=== PATIENT | male | born 1950 | race Caucasian/White ===

== ENCOUNTER 2018-03-14 13:46 | Outpatient (REF) | payer MEDICARE, SELFPAY ==
[2018-03-14 20:46] LABS: Abs Immature Grans 0.01 k/cumm (0.0-0.09); Absolute Basophil Count 0.04 k/cumm (0.0-0.2); Absolute Eosinophil Count 0.09 k/cumm (0.0-0.7); Absolute Lymphocyte Count 1.48 k/cumm (1.2-3.4); Absolute Monocyte Count 0.82 k/cumm (0.11-0.7); Absolute Neutrophil Count 5.24 k/cumm (1.2-6.7); Basophils % 0.5; Eosinophils % 1.2; HCT 45.9 % (40.0-50.0); HGB 15.1 g/dL (13.5-17.5); Immature Grans % 0.1; Lymphocytes % 19.3; Mean Corp. HGB Concentration 32.9 g/dL (32.0-36.0); Mean Corpuscular Hemoglobin 32.7 pg (27.0-33.0); Mean Corpuscular Volume 99.4 fL (80-95); Mean Platelet Volume 9.2 fL (8.0-11.0); Monocytes % 10.7; Neutrophils % 68.2; Platelet Count 255 x1000/uL (130-400); RBC 4.62 m/cumm (4.50-6.00); RBC Distribution Width 14.7 % (11.8-14.1); White Blood Cell Count 7.68 k/cumm (4.4-10.8)
[2018-03-14 20:51] LABS: ALT 15 U/L (12-78); AST 17 U/L (15-37); Albumin 3.8 g/dL (3.4-5.0); Alkaline Phosphatase 72 U/L (46-116); Anion Gap 8.9 mmol/L (3-11); BUN 7 mg/dL (7-18); Bilirubin, Total 0.4 mg/dL (0.2-1.0); C-Reactive Protein 0.75 mg/dL (0.0-0.3); CO2 29.1 mmol/L (21.0-32.0); CREATININE 0.94 mg/dL (0.70-1.30); Calcium 8.9 mg/dL (8.5-10.1); Chloride 102 mmol/L (98-107); Glucose 95 mg/dL (70-100); Potassium 4.6 mmol/L (3.5-5.1); Sodium 140 mmol/L (136-145); Total Protein 7.2 g/dL (6.4-8.2)
[2018-03-14 21:28] LABS: ESR 18 MM/HR (1-20)
== END 2018-03-14 13:47 ==
LOC: NCHCN 13:46
PROVIDERS: Visit Provider Family Medicine
DX: H53.9 Unspecified visual disturbance (principal); R51 Headache; F03.90 Unspecified dementia, unspecified severity, without behavioral disturbance, psychotic disturbance, mood disturbance, and anxiety; R68.84 Jaw pain
CPT/HCPCS: 80053; 85652; 85025; 86140

== ENCOUNTER 2018-04-18 15:03 | Outpatient (REF) | payer MEDICARE, SELFPAY ==
[2018-04-18 20:42] LABS: C-Reactive Protein 0.45 mg/dL (0.0-0.3)
[2018-04-18 21:16] LABS: ESR 10 MM/HR (1-20)
== END 2018-04-18 15:23 ==
LOC: NCHCN 15:03
PROVIDERS: Visit Provider Family Medicine
DX: R68.84 Jaw pain (principal); F03.90 Unspecified dementia, unspecified severity, without behavioral disturbance, psychotic disturbance, mood disturbance, and anxiety
CPT/HCPCS: 85652; 86140

== ENCOUNTER 2018-05-07 16:33 | Outpatient (REF) | payer MEDICARE, SELFPAY ==
[2018-05-07 22:43] LABS: C-Reactive Protein 1.68 mg/dL (0.0-0.3)
[2018-05-07 22:49] LABS: ESR 40 MM/HR (1-20)
== END 2018-05-07 16:53 ==
LOC: NCHCN 16:33
PROVIDERS: Visit Provider Family Medicine
DX: R51 Headache (principal); H54.7 Unspecified visual loss; M62.81 Muscle weakness (generalized); M45.6 Ankylosing spondylitis lumbar region
CPT/HCPCS: 85652; 86140

== ENCOUNTER 2018-08-08 21:22 | Outpatient (REF) | payer MEDICARE, SELFPAY ==
[2018-08-08 21:51] LABS: Abs Immature Grans 0.05 k/cumm (0.0-0.09); Absolute Basophil Count 0.01 k/cumm (0.0-0.2); Absolute Eosinophil Count 0.03 k/cumm (0.0-0.7); Absolute Lymphocyte Count 0.56 k/cumm (1.2-3.4); Absolute Neutrophil Count 8.87 k/cumm (1.2-6.7); Basophils % 0.1; Eosinophils % 0.3; HCT 43.6 % (40.0-50.0); HGB 15.4 g/dL (13.5-17.5); Immature Grans % 0.5; Lymphocytes % 5.7; Mean Corp. HGB Concentration 35.3 g/dL (32.0-36.0); Mean Corpuscular Hemoglobin 34.7 pg (27.0-33.0); Mean Corpuscular Volume 98.2 fL (80-95); Mean Platelet Volume 8.9 fL (8.0-11.0); Monocytes % 3.1; Neutrophils % 90.3; Platelet Count 208 x1000/uL (130-400); RBC 4.44 m/cumm (4.50-6.00); RBC Distribution Width 13.6 % (11.8-14.1); White Blood Cell Count 9.82 k/cumm (4.4-10.8)
[2018-08-08 22:01] LABS: ALT 20 U/L (12-78); AST 7 U/L (15-37); Albumin 3.5 g/dL (3.4-5.0); Alkaline Phosphatase 58 U/L (46-116); Anion Gap 7.5 mmol/L (3-11); BUN 13 mg/dL (7-18); Bilirubin, Total 0.5 mg/dL (0.2-1.0); CO2 29.5 mmol/L (21.0-32.0); CREATININE 1.23 mg/dL (0.70-1.30); Chloride 105 mmol/L (98-107); Estimated GFR 58.87 (mL/min/1.73m2); Glucose 122 mg/dL (70-100); Potassium 4.5 mmol/L (3.5-5.1); Sodium 142 mmol/L (136-145); Total Protein 6.5 g/dL (6.4-8.2)
[2018-08-08 23:14] LABS: ESR 10 MM/HR (1-20)
== END 2018-08-08 21:42 ==
LOC: NCHCN 21:22
PROVIDERS: Visit Provider Family Medicine
DX: M31.9 Necrotizing vasculopathy, unspecified (principal)
CPT/HCPCS: 80053; 85652; 86141; 85025

== ENCOUNTER 2018-11-20 12:19 | Outpatient (REF) | payer MEDICARE, SELFPAY ==
[2018-11-20 22:02] LABS: C-Reactive Protein 0.45 mg/dL (0.0-0.3)
[2018-11-20 22:50] LABS: ESR 18 MM/HR (1-20)
== END 2018-11-20 12:39 ==
LOC: LBN 12:19
PROVIDERS: Visit Provider Internal Medicine
DX: M31.6 Other giant cell arteritis (principal)
CPT/HCPCS: 85652; 86140

== ENCOUNTER 2019-01-06 15:27 | Outpatient (REF) | payer MEDICARE, SELFPAY ==
[2019-01-06 20:48] LABS: C-Reactive Protein 0.52 mg/dL (0.0-0.3)
== END 2019-01-06 15:47 ==
LOC: LBN 15:27
PROVIDERS: Visit Provider Internal Medicine
DX: M31.6 Other giant cell arteritis (principal)
CPT/HCPCS: 86140

== ENCOUNTER 2019-02-18 10:55 | Outpatient (REF) | payer MEDICARE, SELFPAY ==
[2019-02-18 22:57] LABS: C-Reactive Protein 0.51 mg/dL (0.0-0.3)
[2019-02-18 23:28] LABS: ESR 17 mm/hr (1-20)
== END 2019-02-18 11:15 ==
LOC: NCHCN 10:55
PROVIDERS: Visit Provider Registered Nurse
DX: M31.6 Other giant cell arteritis (principal); M35.3 Polymyalgia rheumatica; D64.9 Anemia, unspecified
CPT/HCPCS: 85652; 86140

== ENCOUNTER 2019-03-28 14:31 | Outpatient (REF) | payer MEDICARE, SELFPAY ==
[2019-03-28 21:28] LABS: C-Reactive Protein 1.45 mg/dL (0.0-0.3)
[2019-03-28 22:13] LABS: ESR 27 mm/hr (1-20)
== END 2019-03-28 14:51 ==
LOC: LBN 14:31
PROVIDERS: Visit Provider Internal Medicine
DX: M31.6 Other giant cell arteritis (principal)
CPT/HCPCS: 85652; 86140

== ENCOUNTER 2019-07-21 09:24 | Outpatient (REF) | payer MEDICARE, SELFPAY ==
[2019-07-22 12:19] LABS: Source: Other; pH Body Fluid 6
[2019-07-25 15:23] LABS: Oxalate Conc (mmol/L) 0.09 mmol/L; Oxalate Concentration 7.9 mg/L; Oxalate, U 0.23 mmol/24 h (0.11-0.46); Oxalate, U 20.2 mg/24 h (9.7 - 40.5); Urine Volume 2500 mL
[2019-07-25 16:31] LABS: Calcium Urine 8.4 mg/dL (See Note); Calcium Urine 24 hr 210 mg/24hrs (100-300)
[2019-07-25 16:32] LABS: Phosphorus Urine 30.7 mg/dL (See Note); Phosphorus Urine 24hr 0.8 g/24hrs (0.4-1.3); Timed Urine Volume 2500 mL
[2019-07-25 19:20] LABS: Citrate Excretion, 24hr, U 185 mg/24 h; Urine Volume 2500 mL
[2019-07-28 09:57] LABS: Timed Urine Volume 2500 mL
== END 2019-07-21 09:44 ==
LOC: NCHCN 09:24
PROVIDERS: PCP Registered Nurse; Visit Provider Registered Nurse
DX: R79.82 Elevated C-reactive protein (CRP) (principal); N29 Other disorders of kidney and ureter in diseases classified elsewhere
CPT/HCPCS: 82507; 81050; 82340; 83945; 83986; 84105

== ENCOUNTER 2019-09-23 21:12 | Outpatient (REF) | payer MEDICARE, SELFPAY ==
[2019-09-23 21:39] LABS: C-Reactive Protein 0.71 mg/dL (0.0-0.3)
== END 2019-09-23 21:32 ==
LOC: NCHCN 21:12
PROVIDERS: PCP Registered Nurse; Visit Provider Registered Nurse
DX: M31.6 Other giant cell arteritis (principal)
CPT/HCPCS: 86140

== ENCOUNTER 2019-10-13 16:48 | Outpatient (REF) | payer MEDICARE, SELFPAY ==
[2019-10-13 20:50] LABS: HCT 46.9 % (40.0-50.0); HGB 15.5 g/dL (13.5-17.5); Mean Corpuscular Hemoglobin 32.8 pg (27.0-33.0); Mean Corpuscular Volume 99.2 fL (80-95); Mean Platelet Volume 9.3 fL (8.0-11.0); Platelet Count 218 x1000/uL (130-400); RBC 4.73 m/cumm (4.50-6.00); RBC Distribution Width 14.6 % (11.8-14.1); White Blood Cell Count 5.93 k/cumm (4.4-10.8)
[2019-10-13 20:59] LABS: ALT 23 U/L (16-63); AST 18 U/L (15-37); Albumin 3.9 g/dL (3.4-5.0); Alkaline Phosphatase 83 U/L (46-116); BUN 12 mg/dL (7-18); Bilirubin, Total 0.6 mg/dL (0.2-1.0); C-Reactive Protein 0.85 mg/dL (0.0-0.3); CREATININE 0.98 mg/dL (0.70-1.30); Calcium 9.1 mg/dL (8.5-10.1); Chloride 103 mmol/L (98-107); Glucose 115 mg/dL (74-106); NT-proBNP 212 pg/mL (<300); Potassium 4.8 mmol/L (3.5-5.1); Sodium 140 mmol/L (136-145)
[2019-10-13 22:05] LABS: ESR 17 mm/hr (1-20)
== END 2019-10-13 17:08 ==
LOC: NCHCN 16:48
PROVIDERS: PCP Registered Nurse; Visit Provider Registered Nurse
DX: R07.89 Other chest pain (principal); R06.09 Other forms of dyspnea; M31.6 Other giant cell arteritis
CPT/HCPCS: 80053; 85027; 85652; 83880; 86140

== ENCOUNTER 2019-12-01 16:54 | Outpatient (REF) | payer MEDICARE, SELFPAY ==
[2019-12-01 21:10] LABS: C-Reactive Protein 1.78 mg/dL (0.0-0.3)
== END 2019-12-01 17:14 ==
LOC: LBN 16:54
PROVIDERS: PCP Registered Nurse; Referring Provider Registered Nurse; Visit Provider Internal Medicine
DX: M31.6 Other giant cell arteritis (principal)
CPT/HCPCS: 86140

== ENCOUNTER 2020-01-14 17:40 | Outpatient (REF) | payer MEDICARE, SELFPAY ==
[2020-01-14 21:33] LABS: Abs Immature Grans 0.01 k/cumm (0.0-0.09); Absolute Basophil Count 0.01 k/cumm (0.0-0.2); Absolute Eosinophil Count 0.06 k/cumm (0.0-0.7); Absolute Monocyte Count 1.01 k/cumm (0.11-0.7); Basophils % 0.2; Eosinophils % 0.9; HCT 42.8 % (40.0-50.0); HGB 15.1 g/dL (13.5-17.5); Immature Grans % 0.2 %; Lymphocytes % 29.3; Mean Corp. HGB Concentration 35.3 g/dL (32.0-36.0); Mean Corpuscular Hemoglobin 35.2 pg (27.0-33.0); Mean Corpuscular Volume 99.8 fL (80-95); Mean Platelet Volume 9.4 fL (8.0-11.0); Monocytes % 15.6; Neutrophils % 53.8; Platelet Count 236 x1000/uL (130-400); RBC 4.29 m/cumm (4.50-6.00); RBC Distribution Width 13.1 % (11.8-14.1); White Blood Cell Count 6.49 k/cumm (4.4-10.8)
[2020-01-14 21:54] LABS: ALT 18 U/L (16-63); AST 17 U/L (15-37); Albumin 4.3 g/dL (3.4-5.0); Alkaline Phosphatase 75 U/L (46-116); Anion Gap 5.4 mmol/L (3-11); BUN 9 mg/dL (7-18); Bilirubin, Total 0.6 mg/dL (0.2-1.0); C-Reactive Protein 0.56 mg/dL (0.0-0.3); CO2 33.6 mmol/L (21.0-32.0); CREATININE 0.99 mg/dL (0.70-1.30); Chloride 101 mmol/L (98-107); Glucose 83 mg/dL (74-106); Potassium 5.2 mmol/L (3.5-5.1); Sodium 140 mmol/L (136-145); TSH 1.15 uIU/mL (0.36-3.74); Total Protein 7.4 g/dL (6.4-8.2)
== END 2020-01-14 18:00 ==
LOC: NCHCN 17:40
PROVIDERS: PCP Registered Nurse; Visit Provider Registered Nurse
DX: R06.00 Dyspnea, unspecified (principal); J44.9 Chronic obstructive pulmonary disease, unspecified; M31.6 Other giant cell arteritis; Z79.899 Other long term (current) drug therapy
CPT/HCPCS: 80053; 84443; 85025; 86140

== ENCOUNTER 2020-02-06 16:47 | Outpatient (REF) | payer MEDICARE, SELFPAY ==
[2020-02-06 21:41] LABS: Anion Gap 8.8 mmol/L (3-11); BUN 10 mg/dL (7-18); CO2 27.2 mmol/L (21.0-32.0); CREATININE 0.89 mg/dL (0.70-1.30); Calcium 9.1 mg/dL (8.5-10.1); Chloride 104 mmol/L (98-107); Glucose 87 mg/dL (74-106); Potassium 4.1 mmol/L (3.5-5.1); Sodium 140 mmol/L (136-145)
== END 2020-02-06 17:07 ==
LOC: NCHCN 16:47
PROVIDERS: PCP Registered Nurse; Visit Provider Registered Nurse
DX: E87.5 Hyperkalemia (principal)
CPT/HCPCS: 80048

== ENCOUNTER 2021-08-18 18:43 | Outpatient (REF) | payer MEDICARE, SELFPAY ==
[2021-08-18 15:05] LABS: ALT 24 U/L (16-63); AST 21 U/L (15-37); Albumin 3.8 g/dL (3.4-5.0); Alkaline Phosphatase 79 U/L (46-116); Anion Gap 5.8 mmol/L (3-11); BUN 10 mg/dL (7-18); Bilirubin, Total 0.4 mg/dL (0.2-1.0); C-Reactive Protein 2.19 mg/dL (0.0-0.3); CO2 30.2 mmol/L (21.0-32.0); Calcium 9.9 mg/dL (8.5-10.1); Chloride 103 mmol/L (98-107); Glucose 102 mg/dL (74-106); Magnesium 1.7 mg/dL (1.8-2.4); Potassium 5.1 mmol/L (3.5-5.1); Sodium 139 mmol/L (136-145); Total Protein 7.1 g/dL (6.4-8.2)
[2021-08-18 15:12] LABS: Hemoglobin A1C 5.6 % (<5.7)
== END 2021-08-18 18:44 | disposition home or self-care (01) ==
LOC: NCHCN 18:43
PROVIDERS: PCP Registered Nurse; Visit Provider Registered Nurse
DX: R73.03 Prediabetes (principal); M45.6 Ankylosing spondylitis lumbar region; I25.10 Atherosclerotic heart disease of native coronary artery without angina pectoris; Z72.4 Inappropriate diet and eating habits
CPT/HCPCS: 80053; 83036; 83735; 86140

== ENCOUNTER 2021-08-26 13:38 | Outpatient (REF) | payer MEDICARE, SELFPAY | END 2021-08-26 13:39 | disposition home or self-care (01) | LOC: NCHCN 13:38 | PROVIDERS: PCP Registered Nurse; Visit Provider Registered Nurse | DX: R05.8 Other specified cough (principal); J85.2 Abscess of lung without pneumonia; F17.210 Nicotine dependence, cigarettes, uncomplicated; R09.3 Abnormal sputum | CPT/HCPCS: 87116; 87206; 87070; 87205 ==

== ENCOUNTER 2021-09-15 16:21 | Outpatient (REF) | payer MEDICARE, SELFPAY ==
[2021-09-15 21:39] LABS: Calculated LDL 57 mg/dL (<100); Cholesterol 124 mg/dL (<200); HDL Cholesterol 57 mg/dL (40-60); Triglyceride 51 mg/dL (<150)
[2021-09-16 17:36] LABS: CRP, High Sensitivity >15.00 mg/L (See Note)
== END 2021-09-15 16:22 | disposition home or self-care (01) ==
LOC: NCHCN 16:21
PROVIDERS: PCP Registered Nurse; Visit Provider Registered Nurse
DX: E78.5 Hyperlipidemia, unspecified (principal); R39.9 Unspecified symptoms and signs involving the genitourinary system; I73.9 Peripheral vascular disease, unspecified; Z79.52 Long term (current) use of systemic steroids; Z12.5 Encounter for screening for malignant neoplasm of prostate
CPT/HCPCS: 80061; 84153; 86141

== ENCOUNTER 2021-09-28 16:44 | Outpatient (REF) | payer MEDICARE, SELFPAY ==
[2021-09-28 14:13] LABS: C-Reactive Protein 1.88 mg/dL (0.0-0.3)
== END 2021-09-28 16:45 | disposition home or self-care (01) ==
LOC: NCHCN 16:44
PROVIDERS: PCP Registered Nurse; Visit Provider Registered Nurse
DX: M35.3 Polymyalgia rheumatica (principal)
CPT/HCPCS: 86140

== ENCOUNTER 2022-09-21 13:48 | Outpatient (REF) | payer MEDICARE, SELFPAY ==
--- OUTSIDE RECORDS SUMMARY | 2022-09-21 13:54 | XMS_ITS | CCD ---
Author Name Unknown Address [address] [place] [address] [id number] Organization Unknown Address [address] [place] [address] [phone] Care Team Providers Care Welder First Class Name Role Phone NILTON CARRASCO Attending Physician [phone] NILTON CARRASCO Rounding (Secondary) Physician [phone] Vital Signs Unknown or Not Available. Allergies Unknown or Not Available. Procedures Unknown or Not Available. History of Immunizations Unknown or Not Available. Problems Unknown or Not Available. Results Unknown or Not Available. Active Medications Unknown or Not Available. Medications Administered During Visit Unknown or Not Available. Encounters Encounter Diagnosis Diagnosis Code Start Date Other fatigue [id number] 08/03/2021 Social History Smoking Status Code Start Date End Date Current every day smoker [id number] Patient Decision Aids Unknown or Not Available. Discharge Instructions You were admitted to [facility] on 08/03/2021 13:56 with a principal diagnosis of Other fatigue You were discharged from [facility] on 08/03/2021 13:56 Should you have any questions prior to discharge, please contact a member of your healthcare team. If you have left the hospital and have any questions, please contact your primary care physician. Chief Complaint and Reason For Visit Unknown or Not Available. Function Status Unknown or Not Available. Plan of Care Unknown or Not Available. Referral/Transition of Care Unknown or Not Available.
[2022-09-21 14:25] LABS: ESR 29 mm/hr (0-20)
[2022-09-21 14:27] LABS: Abs Immature Grans 0.09 10^3/uL (0.0-0.06); Absolute Basophil Count 0.03 10^3/uL (0.0-0.2); Absolute Eosinophil Count 0.08 10^3/uL (0.0-0.7); Absolute Lymphocyte Count 1.47 10^3/uL (1.2-3.4); Absolute Monocyte Count 2.15 10^3/uL (0.1-0.8); Basophils % 0.5; Eosinophils % 1.2; HCT 42.4 % (40.0-50.0); HGB 14.6 g/dL (13.5-17.5); Immature Grans % 1.4; Lymphocytes % 22.2; MCH 33.1 pg (27.0-33.0); MCHC 34.4 % (32.0-36.0); MCV 96 fL (80-95); MPV 9.4 fL (8.0-11.0); Monocytes % 32.5; Neutrophils % 42.2; Platelet Count 183 10^3/uL (130-400); RBC 4.41 10^6/uL (4.36-5.78); RDW 13.2 % (11.8-14.1); RDW-SD 46.9 fL; WBC 6.62 10^3/uL (4.4-10.8)
[2022-09-21 14:45] LABS: Diff Comment Diff Reviewed; RBC Morphology Normal
[2022-09-21 15:00] LABS: Anion Gap 4.8 mmol/L (3-11); BUN 12 mg/dL (7-18); C-Reactive Protein 1.49 mg/dL (0.0-0.3); CO2 31.2 mmol/L (21.0-32.0); Calcium 9.7 mg/dL (8.5-10.1); Chloride 105 mmol/L (98-107); Estimated GFR 80.47 (mL/min/1.73m2); Glucose 92 mg/dL (74-106); Potassium 4.8 mmol/L (3.5-5.1); Sodium 141 mmol/L (136-145)
== END 2022-09-21 13:49 | disposition home or self-care (01) ==
LOC: NCHCN 13:48
PROVIDERS: PCP Registered Nurse; Visit Provider Registered Nurse
DX: M35.3 Polymyalgia rheumatica (principal); D75.1 Secondary polycythemia
CPT/HCPCS: 80048; 85652; 85025; 86140

== ENCOUNTER 2023-10-26 14:47 | Outpatient (REF) | payer MEDICARE, SELFPAY ==
[2023-10-26 21:01] LABS: Abs Immature Grans 0.24 10^3/uL (0.0-0.06); ESR 28 mm/hr (0-20); HCT 43.7 % (40.0-50.0); HGB 14.4 g/dL (13.5-17.5); MCH 32.1 pg (27.0-33.0); MCV 98 fL (80-95); Platelet Count 155 10^3/uL (130-400); RBC 4.48 10^6/uL (4.36-5.78); RDW 14.5 % (11.8-14.1); RDW-SD 51.9 fL; WBC 12.01 10^3/uL (4.4-10.8)
[2023-10-26 21:12] LABS: ALT 16 U/L (16-63); AST 15 U/L (15-37); Albumin 3.8 g/dL (3.4-5.0); Alkaline Phosphatase 72 U/L (46-116); Anion Gap 11.2 mmol/L (3-11); BUN 14 mg/dL (7-18); Bilirubin, Total 0.5 mg/dL (0.2-1.0); C-Reactive Protein 4.88 mg/dL (<or=0.5); CO2 27.8 mmol/L (21.0-32.0); CREATININE 1.1 mg/dL (0.70-1.30); Calcium 9.1 mg/dL (8.5-10.1); Chloride 103 mmol/L (98-107); Estimated GFR 71.32 (mL/min/1.73m2); Glucose 84 mg/dL (74-106); Potassium 4.1 mmol/L (3.5-5.1); Sodium 142 mmol/L (136-145); Total Protein 7.4 g/dL (6.4-8.2)
[2023-10-26 21:14] LABS: Absolute Monocyte Count 3.48 10^3/uL (0.1-0.8); Absolute Neutrophil Count 6.73 10^3/uL (1.2-6.7); Atypical Lymphocytes % 1
[2023-10-26 21:15] LABS: Diff Comment Diff Reviewed; RBC Morphology Normal
== END 2023-10-26 14:48 | disposition home or self-care (01) ==
LOC: NCHCN 14:47
PROVIDERS: PCP Registered Nurse; Visit Provider Family Medicine
DX: M31.6 Other giant cell arteritis (principal)
CPT/HCPCS: 80053; 85652; 85025; 86140